=== PATIENT | female | born 1975 | race Caucasian/White ===

== ENCOUNTER 2020-10-01 19:11 | Emergency (ER) | payer OTHER, SELFPAY ==
--- NOTE | 2020-10-01 19:17 | ED.EAR ---
HPI - Ear Problem General Chief complaint: Ear Stated complaint: swollen ear Source: patient and RN notes reviewed Mode of arrival: ambulatory Limitations: no limitations History of Present Illness HPI Narrative: This is a 44-year-old white female that presented to urgent care today with complaints of right ear pain. According to patient 2 days ago she developed pain in her right ear she noted that this morning she felt like something burst in her ear and fluid came out of her ear canal patient does have a history of having. Otitis media and visit with the ENT doctor she has not visited him in several years. She also notes that she has a history of having abscess with MRSA. She denies any hearing loss but notes that her right ear canal is swollen. She also notes that she started to feel itchiness in her left ear. The patient denies SOB, CP, palpitation, extremity numbness, lightheadedness, dizziness, constipation, diarrhea, chills, or fever. MD Complaint: ear pain (Right ear) and ear discharge (Right ear) Location: right ear Related Data Home Medications Medication Instructions Recorded Confirmed No Home Medications 10/01/20 10/01/20 Allergies Allergy/AdvReac Type Severity Reaction Status Date / Time clindamycin Allergy Severe Hives Unverified 10/01/20 19:13 codeine Allergy Unknown ITCHING Unverified 10/01/20 19:13 Penicillins Allergy Unknown Hives Verified 10/01/20 19:13 ketorolac AdvReac Mild NAUSEA Verified 10/01/20 19:13 Review of Systems Review of Systems: All systems reviewed & are unremarkable except as noted in HPI and below (10 point system review) Exam Narrative: Exam Narrative: GENERAL: This is a well-nourished, well-developed patient, in no apparent distress. HEAD: normocephalic, atraumatic. EYES: PERRL. Sclera clear/white. Vision is grossly intact. EARS: Erythema and edema of the tympanic membranes no bulging pe. Hearing grossly intact. NOSE: External nose normal with no obvious nasal discharge, nares without redness, no rhinorrhea. THROAT: Mucous membranes moist, posterior pharynx clear. NECK: Neck supple, non-tender without lymphadenopathy, masses or thyromegaly. CARDIOVASCULAR: Regular rate and rhythm without murmurs, gallops, or rubs. RESPIRATORY: Clear to auscultation. Breath sounds equal bilaterally. No wheezes, rales, or rhonchi. GASTROINTESTINAL: Abdomen soft, non-tender, nondistended. Bowel sounds are active. No hepato-splenomegaly, or palpable masses. No guarding. SKIN: warm, intact with no suspicious lesions or rash, good texture and turgor. NEURO: awake, alert, and oriented to person, place and time. There were no obvious focal neurologic abnormalities. Steady gait EXTREMITIES: Normal range of motion. No edema. No calf tenderness. Negative Homans sign bilaterally. BACK: Nontender without deformity or crepitance. No flank tenderness. Course Vital Signs Vital signs: Vital Signs Temperature 97.8 F 10/01/20 19:19 Pulse Rate 111 H 10/01/20 19:19 Respiratory Rate 16 10/01/20 19:19 Blood Pressure 136/81 10/01/20 19:19 Pulse Oximetry 100 10/01/20 19:19 Temperature 97.8 F 10/01/20 19:19 Pulse Rate 111 H 10/01/20 19:19 Respiratory Rate 16 10/01/20 19:19 Blood Pressure 136/81 10/01/20 19:19 Pulse Oximetry 100 10/01/20 19:19 Medical Decision Making Vital Signs Vital Signs: Vital Signs Temperature 97.8 F 10/01/20 19:19 Pulse Rate 111 H 10/01/20 19:19 Respiratory Rate 16 10/01/20 19:19 Blood Pressure 136/81 10/01/20 19:19 Pulse Oximetry 100 10/01/20 19:19 Temperature 97.8 F 10/01/20 19:19 Pulse Rate 111 H 10/01/20 19:19 Respiratory Rate 16 10/01/20 19:19 Blood Pressure 136/81 10/01/20 19:19 Pulse Oximetry 100 10/01/20 19:19 Discharge Plan Discharge Clinical Impression: Otitis media Qualifiers: Otitis media type: unspecified Chronicity: acute Qualified Code(s): H66.90 - Otitis media, unspecified, unspecified ear
[2020-10-01 19:19] VITALS: BP 136/81; PULSE 111; RESP 16; TEMP 36.6; O2SAT 100
== END 2020-10-01 19:53 | disposition home or self-care (01) ==
PROVIDERS: Emergency Provider Nurse Practitioner
DX: H66.90 Otitis media, unspecified, unspecified ear (principal); H60.391 Other infective otitis externa, right ear
CPT/HCPCS: 99213; G0463

== ENCOUNTER 2021-01-05 18:49 | Emergency (ER) | payer OTHER, SELFPAY ==
--- NOTE | 2021-01-05 19:00 | ED.EAR ---
HPI - Ear Problem General Chief complaint: Ear Stated complaint: left ear pain Time Seen by Provider: 01/05/21 19:01 Source: patient Mode of arrival: ambulatory Limitations: no limitations History of Present Illness HPI Narrative: 45-year-old female presents to the [facility] with complaints of left ear pain for 3 days. States that she believes it started as a pimple a couple of days ago and has just been gradually getting worse. No treatment prior to arrival. It did not similar episode about a year ago to her right ear. Requesting Diflucan because of the antibiotics Related Data Allergies Allergy/AdvReac Type Severity Reaction Status Date / Time clindamycin Allergy Severe Hives Unverified 10/01/20 19:13 codeine Allergy Unknown ITCHING Unverified 10/01/20 19:13 Penicillins Allergy Unknown Hives Verified 10/01/20 19:13 ketorolac AdvReac Mild NAUSEA Verified 10/01/20 19:13 Review of Systems Review of Systems: Narrative: CONSTITUTIONAL: Denies fever, chills, or sweats. EYES: Denies visual changes, redness, or discharge. ENT: Denies rhinorrhea, congestion, sore throat, or otalgia. Left ear canal red, swollen painful CARDIOVASCULAR: Denies chest pain, palpitations, or edema. RESPIRATORY: Denies cough or dyspnea. GASTROINTESTINAL: Denies abdominal pain, nausea, vomiting, or diarrhea. GENITOURINARY: Denies dysuria or hematuria. SKIN: Denies rash or itching. MUSCULOSKELETAL: Denies back pain, joint pain, or myalgia. NEUROLOGIC: Denies headache, numbness, or weakness. PSYCHIATRIC: Denies anxiety or depression. All other systems reviewed are negative, except as documented in HPI. PMFSH Comments At the time of my signature, I reviewed and agree with the nursing past medical, surgical, social, and family history. There is no relevant family history pertinent to the patient complaint. Exam Narrative: Exam Narrative: GENERAL: This is a well-nourished, well-developed patient, in mild pain distress. HEAD: normocephalic, atraumatic. EYES: PERRL. Sclera clear/white. Vision is grossly intact. EARS: Right external ears normal, auditory canals clear and without drainage, TMs normal without perforation. Left ear canal red, inflamed. Scab noted to the outside. Tender to touch. TM red without perforation. No mastoid tenderness. + preauricular tenderness NOSE: External nose normal with no obvious nasal discharge, nares without redness, rhinorrhea noted THROAT: Mucous membranes moist, posterior pharynx clear. NECK: Neck supple, non-tender without lymphadenopathy, masses or thyromegaly. CARDIOVASCULAR: Regular rate and rhythm without murmurs, gallops, or rubs. RESPIRATORY: Clear to auscultation. Breath sounds equal bilaterally. No wheezes, rales, or rhonchi. GASTROINTESTINAL: Abdomen soft, non-tender, nondistended. Bowel sounds are active. No hepato-splenomegaly, or palpable masses. No guarding. SKIN: warm, intact with no suspicious lesions or rash, good texture and turgor. NEURO: awake, alert, and oriented to person, place and time. There were no obvious focal neurologic abnormalities. EXTREMITIES: No clubbing, cyanosis, or edema. No joint tenderness, effusion, or edema noted. No calf tenderness. Negative Homans sign bilaterally. BACK: Nontender without deformity. No flank tenderness. Course Vital Signs Vital signs: Vital Signs Temperature 97.9 F 01/05/21 19:06 Pulse Rate 103 H 01/05/21 19:06 Respiratory Rate 18 01/05/21 19:06 Blood Pressure 156/95 H 01/05/21 19:06 Pulse Oximetry 99 01/05/21 19:06 Temperature 97.9 F 01/05/21 19:06 Pulse Rate 103 H 01/05/21 19:06 Respiratory Rate 18 01/05/21 19:06 Blood Pressure 156/95 H 01/05/21 19:06 Pulse Oximetry 99 01/05/21 19:06 Reviewed, elevated blood pressure Procedures Other Procedure Procedure 1: Other Procedure: Left ear, ear wick placement. Explained procedure to patient, Geovani placed with alligator forceps and 4 drops of normal saline placed, explained t
[2021-01-05 19:06] VITALS: BP 156/95; PULSE 103; RESP 18; TEMP 36.6; O2SAT 99
== END 2021-01-05 19:25 | disposition home or self-care (01) ==
PROVIDERS: Emergency Provider Nurse Practitioner
DX: H60.502 Unspecified acute noninfective otitis externa, left ear (principal); E78.00 Pure hypercholesterolemia, unspecified; I10 Essential (primary) hypertension; J44.9 Chronic obstructive pulmonary disease, unspecified; E11.9 Type 2 diabetes mellitus without complications; Z91.14 Patient's other noncompliance with medication regimen
CPT/HCPCS: 99213; G0463

== ENCOUNTER 2021-01-07 17:37 | Emergency (ER) | payer OTHER, SELFPAY ==
--- NOTE | 2021-01-07 17:53 | ED.EAR ---
HPI - Ear Problem General Chief complaint: Ear Stated complaint: Ear Pain Time Seen by Provider: 01/07/21 17:43 Source: patient and RN notes reviewed History of Present Illness HPI Narrative: Patient is a 45-year-old female who presents the urgent care with complaints of left ear pain. Patient states that it started approximately 5 days ago. Patient was seen on 05 January and prescribed ciprofloxacin, eardrops and Diflucan. Patient was also seen in September for an otitis externa of the right ear. Patient believes at this incident originally started as a pimple on the anterior surface of the ear . Patient states that she is returning due to the pain not improving. Patient believes that the earwax that was placed may have been causing some of the increased pain. Patient seems a little manic crying, speaking normally, and then crying again. Patient states that she has been using Advil for the pain. States that she originally was taking the ciprofloxacin every 6 hours until she realized that it was only twice a day. However patient states she has been using the eardrops as prescribed. No other acute complaints. Patient aware of plan of care. Some parts of this dictation were generated by voice recognition software and may contain typographical and/or grammatical inaccuracies. Related Data Allergies Allergy/AdvReac Type Severity Reaction Status Date / Time clindamycin Allergy Severe Hives Unverified 10/01/20 19:13 codeine Allergy Unknown ITCHING Unverified 10/01/20 19:13 Penicillins Allergy Unknown Hives Verified 10/01/20 19:13 ketorolac AdvReac Mild NAUSEA Verified 10/01/20 19:13 Review of Systems Review of Systems: Narrative: CONSTITUTIONAL: Denies fever, chills, or sweats. EYES: Denies visual changes, redness, or discharge. ENT: Denies rhinorrhea, congestion, sore throat. Reports of left otalgia CARDIOVASCULAR: Denies chest pain, palpitations, or edema. RESPIRATORY: Denies cough or dyspnea. GASTROINTESTINAL: Denies abdominal pain, nausea, vomiting, or diarrhea. GENITOURINARY: Denies dysuria or hematuria. SKIN: Denies rash or itching. MUSCULOSKELETAL: Denies back pain, joint pain, or myalgia. NEUROLOGIC: Denies headache, numbness, or weakness. All other systems reviewed are negative, except as documented in HPI. PMFSH Comments At the time of my signature, I reviewed and agree with the nursing past medical, surgical, social, and family history. There is no relevant family history pertinent to the patient complaint. Exam Narrative: Exam Narrative: GENERAL: This is a well-nourished, well-developed patient, in no apparent distress. HEAD: normocephalic, atraumatic. EYES: PERRL. Sclera clear/white. Vision is grossly intact. EARS: External ears normal, right auditory canals clear and without drainage, mild edema and erythema with notable dryness to the left external auditory canal without damage. Bilateral TMs normal without perforation. Hearing grossly intact. Small pinpoint healing abrasion noted to the anterior outer surface of the left ear NOSE: External nose normal with no obvious nasal discharge, nares without redness, no rhinorrhea. THROAT: Mucous membranes moist NECK: Neck supple SKIN: warm, intact with no suspicious lesions or rash, good texture and turgor. NEURO: awake, alert, and oriented to person, place and time. There were no obvious focal neurologic abnormalities. EXTREMITIES: No clubbing, cyanosis, or edema. Course Vital Signs Vital signs: Vital Signs Temperature 97.6 F 01/07/21 17:54 Pulse Rate 105 H 01/07/21 17:54 Respiratory Rate 16 01/07/21 17:54 Blood Pressure 147/93 H 01/07/21 17:54 Pulse Oximetry 100 01/07/21 17:54 Temperature 97.6 F 01/07/21 17:54 Pulse Rate 105 H 01/07/21 17:54 Respiratory Rate 16 01/07/21 17:54 Blood Pressure 147/93 H 01/07/21 17:54 Pulse Oximetry 100 01/07/21 17:54 Reviewed-patient is informed that they may have pre-hypertension or hypertension based on
[2021-01-07 17:54] VITALS: BP 147/93; PULSE 105; RESP 16; TEMP 36.4; O2SAT 100
== END 2021-01-07 18:01 | disposition home or self-care (01) ==
PROVIDERS: Emergency Provider Nurse Practitioner Family
DX: H60.92 Unspecified otitis externa, left ear (principal); E78.00 Pure hypercholesterolemia, unspecified; I10 Essential (primary) hypertension; J44.9 Chronic obstructive pulmonary disease, unspecified; E11.9 Type 2 diabetes mellitus without complications; Z91.14 Patient's other noncompliance with medication regimen
CPT/HCPCS: 99211; G0463

== ENCOUNTER 2021-01-28 18:43 | Emergency (ER) | payer OTHER, SELFPAY ==
[2021-01-28 19:00] VITALS: BP 129/76; PULSE 107; RESP 16; TEMP 36.9; O2SAT 97
--- NOTE | 2021-01-28 19:06 | ED.SKABFB ---
HPI - Skin/Abscess/Foreign Bdy General Chief complaint: Skin/Abscess/Foreign Body Stated complaint: pimple right leg Time Seen by Provider: 01/28/21 18:58 Source: patient and RN notes reviewed Mode of arrival: ambulatory Limitations: no limitations History of Present Illness HPI narrative: 45-year-old female presents concern for an abscess on her right inner thigh. Reports a history of abscesses. Reports this abscess has been present for approximately 3 days, it has gotten larger, redder, more painful. She denies fever, general malaise, body aches, chills. Reports small amount of drainage from the central scab complaint: abscess/boil Related Data Allergies Allergy/AdvReac Type Severity Reaction Status Date / Time clindamycin Allergy Severe Hives Verified 01/16/21 17:20 codeine Allergy Unknown ITCHING Verified 01/16/21 17:20 Penicillins Allergy Unknown Hives Verified 01/16/21 17:20 ketorolac AdvReac Mild NAUSEA Verified 01/16/21 17:20 Review of Systems Review of Systems: Narrative: CONSTITUTIONAL: Denies malaise, chills, sweats, or fever. CARDIOVASCULAR: Denies chest pain, palpitations, or edema. RESPIRATORY: Denies cough or dyspnea. SKIN: Reports abscess on right inner thigh MUSCULOSKELETAL: Denies myalgia. All systems reviewed & are unremarkable except as noted in HPI and below PMFSH Social History Social History (Updated 01/16/21 @ 17:21 by Haritha Brownlee MA) Smoking status: Current every day smoker Alcohol intake: never Substance use: never Comments At time of signature, agree with nursing past medical, surgical, social and family history. There is no relevant family history pertinent to the presenting complaint Exam Narrative: Exam Narrative: GENERAL: Well-appearing, well-nourished, and in no acute distress. HEAD: Normocephalic, atraumatic. EYES: PERRLA, conjunctivae clear ENT: Mucous membranes moist. NECK: Supple. No lymphadenopathy CHEST: Clear to auscultation. No respiratory distress. HEART: Regular rate and rhythm. SKIN: Warm, dry. 2 cm palpable erythematous area central scabbing and with nodule beneath the skin, nonfluctuant. Surrounded by approximately 6 cm of erythema without induration or fluctuation. Area tender to the touch. No drainage noted NEURO: Alert and oriented x3. PSYCH: Normal mood and affect Course Course Emergency Course: Patient is aware of diagnosis, understands and agrees to treatment plan. Anticipatory guidance given. Patient agrees to follow-up as directed and is aware of reasons to seek care at the emergency department. Portions of this record may have been created with voice recognition software Vital Signs Vital signs: Vital Signs Temperature 98.5 F 01/28/21 19:00 Pulse Rate 107 H 01/28/21 19:00 Respiratory Rate 16 01/28/21 19:00 Blood Pressure 129/76 01/28/21 19:00 Pulse Oximetry 97 01/28/21 19:00 Temperature 98.5 F 01/28/21 19:00 Pulse Rate 107 H 01/28/21 19:00 Respiratory Rate 16 01/28/21 19:00 Blood Pressure 129/76 01/28/21 19:00 Pulse Oximetry 97 01/28/21 19:00 Reviewed. MDM - Skin/Abscess/Foreign Bdy MDM Narrative Medical decision making narrative: No indication for drainage at this time, no fluctuation noted. Exam findings show no acute concerns or changes; patient is non-toxic appearing and is in no distress. Patient is appropriate for outpatient treatment and follow-up. Critical Care Time Critical Care Time Critical Care Time: No Discharge Plan Discharge Clinical Impression: Abscess Patient Disposition: Home, Self-Care Condition: Stable Instructions: Antibiotic Form, Abscess (ED) Additional Instructions: Please follow up with your Primary Care Doctor within 48-72 hours - call for an appointment. Rest and elevate affected area; apply moist heat 3-4 times daily for 10-15 minutes. Take Motrin 600mg every 8 hours with food for pain. Please take Antibiotics as directed. If you experience any worsening
== END 2021-01-28 19:13 | disposition home or self-care (01) ==
PROVIDERS: Emergency Provider Nurse Practitioner
DX: L02.415 Cutaneous abscess of right lower limb (principal); F17.200 Nicotine dependence, unspecified, uncomplicated
CPT/HCPCS: 99213; G0463

== ENCOUNTER 2021-03-04 17:53 | Emergency (ER) | payer OTHER, SELFPAY ==
[2021-03-04 18:05] VITALS: BP 129/83; PULSE 99; RESP 16; TEMP 35.9; O2SAT 97
--- NOTE | 2021-03-04 18:05 | ED.GENADULT ---
HPI - General Adult General Chief complaint: Dental/Oral Stated complaint: Tooth Pain Time Seen by Provider: 03/04/21 18:29 Source: patient and RN notes reviewed Mode of arrival: ambulatory Limitations: no limitations History of Present Illness HPI narrative: 45-year-old female presents concern for left upper dental pain for 4 days. Reports symptoms have been getting worse. Reports left cheek swelling. She denies foul taste, difficulty swallowing, drooling, fever. Reports history of dental infections. She denies any loose teeth, broken teeth, missing teeth MD complaint: Dental pain Related Data Home Medications Medication Instructions Recorded Confirmed fluoxetine 10 mg PO DAILY 03/04/21 03/04/21 insulin glargine [Lantus Solostar SUBCUT 03/04/21 U-100 Insulin] insulin lispro unit SUBCUT 03/04/21 losartan 25 mg PO DAILY 03/04/21 03/04/21 ondansetron 4 mg PO DIRECTED 03/04/21 03/04/21 pantoprazole 40 mg PO DIRECTED 03/04/21 03/04/21 potassium chloride 10 meq PO DAILY 03/04/21 03/04/21 Allergies Allergy/AdvReac Type Severity Reaction Status Date / Time clindamycin Allergy Severe Hives Verified 03/04/21 18:37 codeine Allergy Unknown ITCHING Verified 03/04/21 18:37 Penicillins Allergy Unknown Hives Verified 03/04/21 18:37 ketorolac AdvReac Mild NAUSEA Verified 03/04/21 18:37 Review of Systems Review of Systems: Narrative: CONSTITUTIONAL: Denies malaise, chills, sweats, or fever. EYES: Denies visual changes, redness, or discharge. ENT: Denies rhinorrhea, congestion, sinus pain, otalgia or sore throat. Reports left upper dental pain and cheek swelling CARDIOVASCULAR: Denies chest pain, palpitations, or edema. RESPIRATORY: Denies cough or dyspnea. GASTROINTESTINAL: Denies abdominal pain, nausea, vomiting SKIN: Denies rash or itching. MUSCULOSKELETAL: Denies myalgia. NEUROLOGIC: Denies numbness, weakness, or headache. All systems reviewed & are unremarkable except as noted in HPI and below PMFSH Social History Social History (Updated 01/16/21 @ 17:21 by Haritha Brownlee MA) Smoking status: Current every day smoker Alcohol intake: never Substance use: never Comments At time of signature, agree with nursing past medical, surgical, social and family history. There is no relevant family history pertinent to the presenting complaint Exam Narrative: Exam Narrative: GENERAL: Well-appearing, well-nourished, and in no acute distress. HEAD: Normocephalic, atraumatic. EYES: PERRLA, conjunctivae clear ENT: Nares clear. Mucous membranes moist. Oropharynx without edema, erythema or lesions. Tonsils not enlarged and without exudate. Dental bridge noted left upper side, no missing teeth, broken teeth. Left cheek swelling noted NECK: Supple. No lymphadenopathy. CHEST: No respiratory distress. Clear to auscultation. No bony deformities, no asymmetry. Speaks in full sentences. HEART: Regular rate and rhythm. No murmur heard. SKIN: Warm, dry, no rash. NEURO: Alert and oriented x3. PSYCH: Normal mood and affect Course Course Emergency Course: Patient is aware of diagnosis, understands and agrees to treatment plan. Anticipatory guidance given. Patient agrees to follow-up as directed and is aware of reasons to seek care at the emergency department. Portions of this record may have been created with voice recognition software Vital Signs Vital signs: Vital Signs Temperature 96.6 F L 03/04/21 18:05 Pulse Rate 99 03/04/21 18:05 Respiratory Rate 16 03/04/21 18:05 Blood Pressure 129/83 03/04/21 18:05 Pulse Oximetry 97 03/04/21 18:05 Temperature 96.6 F L 03/04/21 18:05 Pulse Rate 99 03/04/21 18:05 Respiratory Rate 16 03/04/21 18:05 Blood Pressure 129/83 03/04/21 18:05 Pulse Oximetry 97 03/04/21 18:05 Reviewed. Medical Decision Making MDM Narrative Medical decision making narrative: Patients pain and complaint coupled with physical findings are consistant with dentalgia. There
== END 2021-03-04 18:40 | disposition home or self-care (01) ==
PROVIDERS: Emergency Provider Nurse Practitioner
DX: K04.7 Periapical abscess without sinus (principal); F17.200 Nicotine dependence, unspecified, uncomplicated; E78.00 Pure hypercholesterolemia, unspecified; I10 Essential (primary) hypertension; J44.9 Chronic obstructive pulmonary disease, unspecified; E11.9 Type 2 diabetes mellitus without complications; Z91.14 Patient's other noncompliance with medication regimen; F41.9 Anxiety disorder, unspecified; F32.9 Major depressive disorder, single episode, unspecified
CPT/HCPCS: 99213; G0463

== ENCOUNTER 2022-08-30 14:00 | Emergency (ER) | payer OTHER, SELFPAY ==
[2022-08-30 14:09] VITALS: BP 140/85; PULSE 104; RESP 18; TEMP 36.4; O2SAT 100
--- NOTE | 2022-08-30 14:30 | ED.EYEPROB ---
HPI - Eye Problem General Chief complaint: Eye Problems Stated complaint: left eye pain Time Seen by Provider: 08/30/22 14:37 Source: patient, RN notes reviewed and old records reviewed Mode of arrival: ambulatory Limitations: no limitations History of Present Illness HPI Narrative: 46-year-old female presents to the [facility] with complaints of left eye redness and left nostril running. Denies any trauma. States the I his it has been tearing a lot and it feels like inflamed. No treatment prior to arrival. Related Data Home Medications Medication Instructions Recorded Confirmed fluoxetine 10 mg capsule 10 mg PO DAILY 03/04/21 08/30/22 insulin glargine 100 unit/mL (3 1 unit subcut DIRECTED 03/04/21 08/30/22 mL) subcutaneous pen (Lantus Solostar U-100 Insulin) insulin lispro 100 unit/mL 1 unit subcut DIRECTED 03/04/21 08/30/22 subcutaneous pen losartan 25 mg tablet 25 mg PO DAILY 03/04/21 08/30/22 Allergies Allergy/AdvReac Type Severity Reaction Status Date / Time clindamycin Allergy Severe Hives Verified 03/04/21 18:37 codeine Allergy Unknown ITCHING Verified 03/04/21 18:37 Penicillins Allergy Unknown Hives Verified 03/04/21 18:37 ketorolac AdvReac Mild NAUSEA Verified 03/04/21 18:37 Review of Systems Review of Systems: All systems reviewed & are unremarkable except as noted in HPI and below Constitutional: Constitutional: Reports no additional constitutional complaints, Denies chills and Denies fever(s) Eyes: Eyes: Reports as per HPI ENT: Reports system reviewed and no additional complaints, except as documented Cardiovascular: Cardiovascular: Reports no additional cardiovascular complaints Respiratory: Respiratory: Reports no additional respiratory complaints Gastrointestinal: Gastrointestinal: Reports no additional gastrointestinal complaints Musculoskeletal: Musculoskeletal: Reports no additional musculoskeletal complaints Integumentary/Breasts: Skin/Breast: Reports system reviewed and no additional complaints, except as docu Neurologic: Reports system reviewed and no additional complaints, except as documented Psychiatric: Psychiatric: Reports no additional psychiatric complaints Allergic/Immunologic: Allergic/Immunologic: Reports no additional allergic/immunologic complaints PMFSH Social History Social History Smoking status: Current every day smoker Alcohol intake: never Substance use: never Comments At the time of my signature, I reviewed and agree with the nursing past medical, surgical, social, and family history. There is no relevant family history pertinent to the patient complaint. Exam Const: General: healthy appearing, no acute distress, alert and well nourished Nutritional Appearance: well nourished Orientation/consciousness: patient oriented x3 Limitations: no limitations HENMT: Head: normal to inspection Ears: external ears normal, TM's normal bilaterally and EAC's normal Eyes: General: appearance normal, both eyes and all related structures Visual Sosa: normal visual sosa by confrontation Alignment and Position: alignment normal Conjunctivae: conjunctival abnormality left conjunctival injection localized; without discharge Sclera: sclerae normal Cornea: corneas normal Pupils: Equal, round and reactive pupils present Neck: Neck: normal visual inspection, no lymphadenopathy and no meningeal signs Chest: Chest palpation & inspection: normal inspection of the chest Resp: Effort & Inspection: normal respiratory effort and no use of accessory muscles Auscultation: clear to auscultation bilaterally, no crackles, no rales, no rhonchi and no wheezes Cardio: Rate: regular rate Rhythm: regular rhythm Skin: General skin exam: normal color Rashes: no rashes Wounds: no wounds Neuro: General: patient oriented x3, moves all extremities, no meningeal signs and no focal motor deficits Cranial nerves: Yes
== END 2022-08-30 14:45 | disposition home or self-care (01) ==
PROVIDERS: Emergency Provider Nurse Practitioner
DX: H10.9 Unspecified conjunctivitis (principal); F17.200 Nicotine dependence, unspecified, uncomplicated; Z79.4 Long term (current) use of insulin
CPT/HCPCS: 99213; G0463

== ENCOUNTER 2023-02-03 14:02 | Emergency (ER) | payer OTHER, SELFPAY ==
--- NOTE | 2023-02-03 14:09 | ED.URI ---
HPI - URI/Sore Throat General Chief Complaint: Upper Respiratory Infection Stated Complaint: Sore Throat Time Seen by Provider: 02/03/23 14:20 Source: patient and RN notes reviewed Mode of arrival: ambulatory Limitations: no limitations History of Present Illness HPI Narrative: 47-year-old female presents with concern for sore throat, aches for 3 days. She reports she was exposed to strep throat. She reports history of asthma but she does not have an inhaler. Denies current shortness of breath MD elicited complaint: sore throat Related Data Home Medications Medication Instructions Recorded Confirmed insulin lispro protamine-lispro subcut 02/03/23 100 unit/mL (75-25) subcutaneous pen losartan 50 mg tablet mg 02/03/23 Allergies Allergy/AdvReac Type Severity Reaction Status Date / Time clindamycin Allergy Severe Hives Verified 02/03/23 14:06 codeine Allergy Unknown ITCHING Verified 02/03/23 14:06 Penicillins Allergy Unknown Hives Verified 02/03/23 14:06 ketorolac AdvReac Mild NAUSEA Verified 02/03/23 14:06 Review of Systems Review of Systems: CONSTITUTIONAL: Reports malaise denies chills, sweats, or fever. EYES: Denies visual changes, redness, or discharge. ENT: Denies rhinorrhea, congestion, sinus pain, otalgia. Reports sore throat. CARDIOVASCULAR: Denies chest pain, palpitations, or edema. RESPIRATORY: Reports cough. Denies dyspnea. GASTROINTESTINAL: Denies abdominal pain, nausea, vomiting, diarrhea SKIN: Denies rash or itching. MUSCULOSKELETAL: Reports myalgia. NEUROLOGIC: Denies headache. 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) Hypertension Missed (07/20/11) MRSA (methicillin resistant staph aureus) culture positive 2002--bottom 2008--upper thigh Narcolepsy Screening mammogram, encounter for Sleep apnea Surgical History Surgical History H/O LEEP (12/16/11) LEEP/Mirena IUD removal/condyloma removal--[facility] ISABELLE II-III History of (12/10/12) primary c/s w/tubal History of cholecystectomy (~1997) History of colposcopy with cervical biopsy (11/27/11) squamous atypia History of dilation and curettage 05/22/11 suction d&c--missed AB History of elective 1999 & 2000 History of endoscopy (~2008) History of laparoscopy (~1992) cyst removal History of tubal ligation (12/10/12) Family History Family History Sibling Multiple sclerosis brother Mother Family history of ovarian cancer Social History Social History (Updated 09/10/22 @ 15:17 by BENITO Candelario) Smoking packs per day: 1 Smoking cigarettes per day: 20.0 Smoking status: Current every day smoker Tobacco type: cigarettes Alcohol intake: never Substance use: never Substance use type: does not use Living arrangements: other Additional living arrangements comments: Occupation/Education: occupation 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 There is no relevant family history pertinent to the presenting complaint Exam Narrative: GENERAL: Nontoxic appearing and in no acute distre
[2023-02-03 14:16] VITALS: BP 90/66; PULSE 114; RESP 24; TEMP 36.3; O2SAT 94
== END 2023-02-03 14:31 | disposition home or self-care (01) ==
PROVIDERS: Emergency Provider Nurse Practitioner; PCP Family Medicine
DX: J02.0 Streptococcal pharyngitis (principal); R06.2 Wheezing; F17.210 Nicotine dependence, cigarettes, uncomplicated; J44.9 Chronic obstructive pulmonary disease, unspecified; E11.9 Type 2 diabetes mellitus without complications; Z79.4 Long term (current) use of insulin; I10 Essential (primary) hypertension; Z86.14 Personal history of Methicillin resistant Staphylococcus aureus infection
CPT/HCPCS: 87880; 99213; G0463

== ENCOUNTER 2023-09-23 19:26 | Emergency (ER) | payer OTHER, SELFPAY ==
--- NOTE | 2023-09-23 19:33 | ED.GENADULT ---
HPI - General Adult General Chief complaint: Upper Respiratory Infection Stated complaint: Sinus Time Seen by Provider: 09/23/23 19:33 Source: patient, RN notes reviewed and old records reviewed Mode of arrival: ambulatory Limitations: no limitations History of Present Illness HPI narrative: Patient presents with multiple complaints of on this Friday having some nausea vomiting and abdominal cramping, has subsided. Also complains of a sore throat that started today. Related Data Home Medications Medication Instructions Recorded Confirmed insulin lispro protamine-lispro subcut 02/03/23 100 unit/mL (75-25) subcutaneous pen losartan 50 mg tablet mg 02/03/23 duloxetine 60 mg capsule,delayed mg PO 09/23/23 release semaglutide 3 mg tablet (Rybelsus) mg PO 09/23/23 Allergies Allergy/AdvReac Type Severity Reaction Status Date / Time clindamycin Allergy Severe Hives Verified 09/23/23 19:39 codeine Allergy Unknown ITCHING Verified 09/23/23 19:39 Penicillins Allergy Unknown Hives Verified 09/23/23 19:39 ketorolac AdvReac Mild NAUSEA Verified 09/23/23 19:39 Review of Systems Review of Systems: All systems reviewed & are unremarkable except as noted in HPI and below Constitutional: Constitutional: Reports no additional constitutional complaints Eyes: Eyes: Reports no additional eye complaints ENT: Reports as per HPI and Reports sore throat Cardiovascular: Cardiovascular: Reports no additional cardiovascular complaints, Denies chest pain and Denies dyspnea Respiratory: Respiratory: Reports no additional respiratory complaints, Denies chest congestion, Denies cough and Denies dyspnea Gastrointestinal: Gastrointestinal: Reports as per HPI, Reports abdominal pain, Reports nausea and Reports vomiting Musculoskeletal: Musculoskeletal: Reports no additional musculoskeletal complaints Integumentary/Breasts: Skin/Breast: Reports system reviewed and no additional complaints, except as docu Neurologic: Reports system reviewed and no additional complaints, except as documented Psychiatric: Psychiatric: Reports no additional psychiatric complaints Allergic/Immunologic: Allergic/Immunologic: Reports no additional allergic/immunologic complaints PMFSH Past Medical History Medical History Abnormal Pap smear of cervix 10/23/11 [facility]GS[facility] - MODERATE DYSPLASIA- 12/16/2011 LEEP- [facility] ISABELLE 2-3 Anxiety and depression Behcet's disease Condyloma COPD (chronic obstructive pulmonary disease) Diabetes type 2, controlled on insulin Encounter for IUD insertion 07/12/11 Mirena insertiion Encounter for IUD removal 12/16/11 Mirena removal in OR with LEEP 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) Hypertension Missed (05/22/11) MRSA (methicillin resistant staph aureus) culture positive 2002--bottom 2008--upper thigh Narcolepsy Screening mammogram, encounter for Sleep apnea Surgical History Surgical History H/O LEEP (12/16/11) LEEP/Mirena IUD removal/condyloma removal--[facility] ISABELLE II-III History of (12/10/12) primary c/s w/tubal History of cholecystectomy (~1997) History of colposcopy with cervical biopsy (11/27/11) squamous atypia History of dilation and curettage 05/22/11 suction d&c--missed AB History of elective 1999 & 2000 History of endoscopy (~2008) History of laparoscopy (~1992) cyst removal History of tubal ligation (12/10/12) Family History Family History Sibling Multiple sclerosis brother Mother Family history of ovarian cancer Social History Social History Smoking packs per day: 1 Smoking cigarettes per day: 20.0 Smoking status: Current every day smoker Tobacco type: cigarettes Alcohol intake: never Substance use: never Substance
[2023-09-23 19:36] VITALS: BP 122/84; PULSE 103; RESP 16; TEMP 36.4; O2SAT 99
== END 2023-09-23 20:07 | disposition home or self-care (01) ==
PROVIDERS: Emergency Provider Nurse Practitioner; PCP Family Medicine
DX: K52.9 Noninfective gastroenteritis and colitis, unspecified (principal); J02.9 Acute pharyngitis, unspecified; J44.9 Chronic obstructive pulmonary disease, unspecified; E11.9 Type 2 diabetes mellitus without complications; I10 Essential (primary) hypertension; F17.210 Nicotine dependence, cigarettes, uncomplicated; Z79.899 Other long term (current) drug therapy
CPT/HCPCS: 87081; 87880; 99213; G0463

== ENCOUNTER 2024-06-04 19:16 | Emergency (ER) | payer OTHER, SELFPAY ==
--- NOTE | 2024-06-04 19:17 | ED.SKABFB ---
HPI - Skin/Abscess/Foreign Bdy General Chief complaint: Skin/Abscess/Foreign Body Stated complaint: Insect Bite Time Seen by Provider: 06/04/24 19:24 Source: patient and RN notes reviewed Mode of arrival: ambulatory Limitations: dementia History of Present Illness HPI narrative: 48-year-old female presents with concern for possible infected bug bite. She reports history of MRSA. She reports a spot started off as itchy bump she scratched it now she has noticed it is painful, has become larger, more red. She denies drainage. She denies fever. She denies itching MD complaint: other (Redness) Related Data Allergies Allergy/AdvReac Type Severity Reaction Status Date / Time clindamycin Allergy Severe Hives Verified 06/04/24 19:22 codeine Allergy Unknown ITCHING Verified 06/04/24 19:22 Penicillins Allergy Unknown Hives Verified 06/04/24 19:22 ketorolac AdvReac Mild NAUSEA Verified 06/04/24 19:22 Review of Systems Review of Systems: CONSTITUTIONAL: Denies malaise, chills, sweats, or fever. EYES: Denies redness, or discharge. ENT: Denies rhinorrhea, congestion, swollen lips, swollen tongue CARDIOVASCULAR: Denies chest pain, palpitations, or edema. RESPIRATORY: Denies cough or dyspnea. GASTROINTESTINAL: Denies abdominal pain, nausea, vomiting SKIN: Reports painful red bump to her right buttock. Denies purulent drainage, vesicles, bullae, numbness, pain beyond proportion MUSCULOSKELETAL: Denies joint pain or myalgia. NEUROLOGIC: Denies headache. 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) Hypertension Missed (05/22/11) MRSA (methicillin resistant staph aureus) culture positive 2002--bottom 2009--upper thigh Narcolepsy Screening mammogram, encounter for Sleep apnea Surgical History Surgical History H/O LEEP (12/16/11) LEEP/Mirena IUD removal/condyloma removal--[facility] ISABELLE II-III History of (12/10/12) primary c/s w/tubal History of cholecystectomy (~1997) History of colposcopy with cervical biopsy (11/27/11) squamous atypia History of dilation and curettage 05/22/11 suction d&c--missed AB History of elective 1999 & 2000 History of endoscopy (~2008) History of laparoscopy (~1992) cyst removal History of tubal ligation (12/10/12) Family History Family History Sibling Multiple sclerosis brother Mother Family history of ovarian cancer Social History Social History Smoking packs per day: 1 Smoking cigarettes per day: 20.0 Smoking status: Current every day smoker Tobacco type: cigarettes Alcohol intake: never Substance use: never Substance use type: does not use Living arrangements: other Additional living arrangements comments: Occupation/Education: occupation 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 There is no relevant family history pertinent to the presenting complaint Exam Narrative: GENERAL: Well-appearing, well-nourished, and in no acute distress. HEAD: Normocephalic, atraumatic. EYES: PERRLA, conju
[2024-06-04 19:24] VITALS: BP 156/85; PULSE 91; RESP 16; TEMP 36.6; O2SAT 98
== END 2024-06-04 19:38 | disposition home or self-care (01) ==
PROVIDERS: Emergency Provider Nurse Practitioner; PCP Family Medicine
DX: L98.9 Disorder of the skin and subcutaneous tissue, unspecified (principal); L08.9 Local infection of the skin and subcutaneous tissue, unspecified; F17.210 Nicotine dependence, cigarettes, uncomplicated; J44.9 Chronic obstructive pulmonary disease, unspecified; E11.9 Type 2 diabetes mellitus without complications; Z79.4 Long term (current) use of insulin; I10 Essential (primary) hypertension; Z86.14 Personal history of Methicillin resistant Staphylococcus aureus infection
CPT/HCPCS: 99213; G0463